=== PATIENT | male | born 1985 | race Caucasian/White ===

== ENCOUNTER 2018-08-10 09:51 | Emergency (ER) | payer OTHER ==
[~2018-08-10] VITALS: Ht 175.3 cm; Wt 117.9 kg
[~2018-08-10 09:51] MED LIST: AUGMENTIN 875875 MG PO; CIPROFLOXIN HC2.5 M1 OTIC; NORCO 5-325 TA1 EAC1 PO; NORCO 5-325 TA1 EACH PO
[2018-08-10 10:31] LABS: ABSOLUTE EOSINOPHILS 0.1 thou/uL (0.0-0.7); ABSOLUTE LYMPHOCYTES 1.7 thou/uL (0.8-5.3); ABSOLUTE MONOCYTES 0.4 thou/uL (0.0-1.2); ABSOLUTE NEUTROPHILS 3.5 thou/uL (1.6-8.1); BASOPHILS 0.6 %; EOSINOPHILS 1.7 %; HEMATOCRIT 44.5 % (42.0-52.0); HEMOGLOBIN 15.6 gm/dL (14.0-18.0); LYMPHOCYTES 30.3 %; MCH 29.3 pg (26.0-34.0); MCV 83.6 fL (80.0-100.0); MONOCYTES 7.4 %; MPV 7.3 fl. (7.2-11.1); NUCLEATED RBCS 0 /100WBC; PLATELET COUNT* 261 thou/uL (150-400); RBC 5.32 mil/uL (4.50-6.00); RDW-CV 13.8 % (10.5-14.5); WBC 5.8 thou/uL (4.0-11.0)
[2018-08-10 10:43] LABS: URINE BILIRUBIN NEGATIVE (Negative); URINE BLOOD NEGATIVE (Negative); URINE CLARITY CLEAR; URINE COLOR YELLOW; URINE GLUCOSE-RANDOM 2+ (Negative); URINE KETONES TRACE (Negative); URINE LEUKOCYTES-REFLEX NEGATIVE (Negative); URINE NITRITE-REFLEX NEGATIVE (Negative); URINE PROTEIN NEGATIVE (Negative); URINE UROBILINOGEN 0.2 E.U./dl (0.2-1.0)
[2018-08-10 10:50] LABS: CALCIUM 9.4 mg/dL (8.5-10.1); CREATININE 0.9 mg/dL (0.6-1.3); TOTAL BILIRUBIN 0.6 mg/dL (<0.1-1.0); TOTAL PROTEIN 7.6 g/dL (6.4-8.2)
[2018-08-10 11:28] VITALS: BP 142/89
== END 2018-08-10 11:33 | disposition home or self-care (01) ==
LOC: M.ERS 09:51
PROVIDERS: Personal Emergency Response Attendant
DX: M54.5 Low back pain (principal); K62.5 Hemorrhage of anus and rectum